=== PATIENT | male | born 1990 | race Caucasian/White ===

== ENCOUNTER 2021-11-16 18:30 | Emergency (ER) | payer SELFPAY ==
[~2021-11-16] VITALS: Ht 180.3 cm; Wt 77.1 kg
== END 2021-11-16 21:06 | disposition home or self-care (01) ==
LOC: ER 18:30
DX: S61.212A Laceration without foreign body of right middle finger without damage to nail, initial encounter (principal); W22.8XXA Striking against or struck by other objects, initial encounter
CPT/HCPCS: 73130; 90714

== ENCOUNTER 2023-04-18 01:55 | Emergency (ER) | payer OTHER ==
[~2023-04-18] VITALS: Ht 180.3 cm; Wt 78.5 kg
[~2023-04-18 01:55] MED LIST: Monodox100 MG PO
[2023-04-18 02:35] VITALS: BP 135/105
[2023-04-18 04:03] LABS: Source, Urine Clean Catch
[2023-04-18 04:11] LABS: Bilirubin, Urine Neg (Neg); Blood, Urine Neg (Neg); Glucose Qualitative, Urine Neg (Neg); Ketones, Urine Neg (Neg); Leukocyte Esterase, Urine 1+ (Neg); Nitrite, Urine Neg (Neg); Protein, Urine 1+ (Neg); Specific Gravity, Urine 1.025 (1.003-1.022); Urobilinogen, Urine 1+ (Normal)
[2023-04-18 04:14] LABS: Appearance, Urine Clear (Clear); Color, Urine Yellow (P-Yellow)
[2023-04-18 04:19] LABS: Bacteria Rare /hpf; Red Blood Cells, Urine Not Seen /hpf (0-2); Squamous Epithelial Cells Not Seen /hpf (Few)
[2023-04-18 04:27] LABS: Albumin, Blood 3.6 g/dL (3.4-5.0); Albumin/Globulin Ratio 0.7 (0.8-1.8); Bilirubin, Total 0.5 mg/dL (0.1-1.0); Bun/Creatinine Ratio 19.8 (12.0-20.0); C-REACTIVE PROTEIN, EXT RANGE 3.52 mg/dL (0.000-0.300); Calcium, Blood 9.2 mg/dL (8.5-10.1); Creatinine, Blood 0.91 mg/dL (0.60-1.20); Globulin, Blood 5.1 g/dL (2.2-4.0); Potassium, Blood 4.3 mmol/L (3.5-5.5); Total Protein, Blood 8.7 g/dL (6.4-8.2)
[2023-04-18] MEDS ORDERED: Keflex500 MG PO (04:46)
[2023-04-18] MEDS ORDERED: Vibramycin100 MG PO (04:46)
[2023-04-19 20:11] LABS: HIV AB/P24 AG SCREEN Non Reactive (Non Reactive)
== END 2023-04-18 05:10 | disposition left against medical advice (07) ==
LOC: ER 01:55
PROVIDERS: Emergency Medicine
DX: S61.542A Puncture wound with foreign body of left wrist, initial encounter (principal); W34.010A Accidental discharge of airgun, initial encounter; A54.9 Gonococcal infection, unspecified; L08.9 Local infection of the skin and subcutaneous tissue, unspecified; Z18.89 Other specified retained foreign body fragments
CPT/HCPCS: 73110; 73130; 80053; 81001; 83605; 86140; 86592; 87040; 87389; 96372; 99283-25; A9270; J0696

== ENCOUNTER 2023-05-05 17:31 | Emergency (ER) | payer OTHER ==
[~2023-05-05] VITALS: Ht 180.3 cm; Wt 78.5 kg
[~2023-05-05 17:31] MED LIST changes: +Keflex500 MG PO; +Vibramycin100 MG PO
[2023-05-05 17:42] VITALS: BP 151/76
[2023-05-05 18:08] LABS: BASOPHILS ABSOLUTE AUTO 0.04 K/mm3 (0.00-0.23); BASOPHILS PERCENT AUTO 1 % (0-2); EOSINOPHILS ABSOLUTE AUTO 0.15 K/mm3 (0.00-0.68); EOSINOPHILS PERCENT AUTO 2 % (0-6); Hemoglobin 13.8 g/dL (13.5-17.5); IMMATURE GRAN PERCENT AUTO 0 % (0-1); LYMPHOCYTES ABSOLUTE AUTO 2.76 K/mm3 (0.84-5.20); LYMPHOCYTES PERCENT AUTO 32 % (21-46); MONOCYTES ABSOLUTE AUTO 0.57 K/mm3 (0.16-1.47); MONOCYTES PERCENT AUTO 7 % (4-13); Mean Corpuscular HGB 32.4 pg (26.0-34.0); Mean Corpuscular HGB Conc 33.7 g/dL (31.5-36.5); Mean Corpuscular Volume 96 fL (80-100); Mean Platelet Volume 8.2 fL (9.1-12.4); NEUTROPHILS ABSOLUTE AUTO 5.14 K/mm3 (1.96-9.15); NEUTROPHILS PERCENT AUTO 59 % (41-73); Platelet Count 398 K/mm3 (150-400); RDW Coefficient Variation 11.3 % (11.7-14.2); RDW Standard Deviation 39.8 fL (35.1-46.3); Red Blood Cell Count 4.26 M/mm3 (4.30-5.90); White Blood Cell Count 8.66 K/mm3 (4.00-11.30)
[2023-05-05 18:28] LABS: C-REACTIVE PROTEIN, EXT RANGE 1.56 mg/dL (0.000-0.300)
[2023-05-05 18:30] LABS: Albumin, Blood 3.5 g/dL (3.4-5.0); Albumin/Globulin Ratio 0.7 (0.8-1.8); Bilirubin, Total 0.2 mg/dL (0.1-1.0); Bun/Creatinine Ratio 13.1 (12.0-20.0); Calcium, Blood 9.1 mg/dL (8.5-10.1); Creatinine, Blood 0.84 mg/dL (0.60-1.20); Globulin, Blood 4.8 g/dL (2.2-4.0); Potassium, Blood 4.3 mmol/L (3.5-5.5); Total Protein, Blood 8.3 g/dL (6.4-8.2)
== END 2023-05-05 20:30 | disposition left against medical advice (07) ==
LOC: ER 17:31
PROVIDERS: Student in an Organized Health Care Education/Training Program
DX: M25.532 Pain in left wrist (principal); R79.82 Elevated C-reactive protein (CRP); R70.0 Elevated erythrocyte sedimentation rate
CPT/HCPCS: 80053; 85025; 85651; 86140; 96374; 99283-25; A9270; J1885

== ENCOUNTER 2023-06-03 06:59 | Emergency (ER) | payer OTHER ==
[~2023-06-03] VITALS: Ht 180.3 cm; Wt 79.4 kg
[2023-06-03 07:35] LABS: BASOPHILS ABSOLUTE AUTO 0.04 K/mm3 (0.00-0.23); BASOPHILS PERCENT AUTO 1 % (0-2); EOSINOPHILS ABSOLUTE AUTO 0.19 K/mm3 (0.00-0.68); EOSINOPHILS PERCENT AUTO 3 % (0-6); Hematocrit 39.4 % (37.0-53.0); Hemoglobin 13.5 g/dL (13.5-17.5); IMMATURE GRAN ABSOLUTE AUTO 0.01 K/mm3 (0.00-0.10); IMMATURE GRAN PERCENT AUTO 0 % (0-1); LYMPHOCYTES ABSOLUTE AUTO 2.69 K/mm3 (0.84-5.20); LYMPHOCYTES PERCENT AUTO 41 % (21-46); MONOCYTES ABSOLUTE AUTO 0.58 K/mm3 (0.16-1.47); MONOCYTES PERCENT AUTO 9 % (4-13); Mean Corpuscular HGB 31.9 pg (26.0-34.0); Mean Corpuscular HGB Conc 34.3 g/dL (31.5-36.5); Mean Corpuscular Volume 93 fL (80-100); Mean Platelet Volume 8.5 fL (9.1-12.4); NEUTROPHILS ABSOLUTE AUTO 3.06 K/mm3 (1.96-9.15); NEUTROPHILS PERCENT AUTO 47 % (41-73); Platelet Count 291 K/mm3 (150-400); RDW Coefficient Variation 11.2 % (11.7-14.2); RDW Standard Deviation 37.9 fL (35.1-46.3); Red Blood Cell Count 4.23 M/mm3 (4.30-5.90); White Blood Cell Count 6.57 K/mm3 (4.00-11.30)
[2023-06-03 07:59] LABS: Albumin, Blood 3.1 g/dL (3.4-5.0); Albumin/Globulin Ratio 0.7 (0.8-1.8); Bilirubin, Total 0.2 mg/dL (0.1-1.0); Bun/Creatinine Ratio 17.2 (12.0-20.0); Calcium, Blood 8.8 mg/dL (8.5-10.1); Creatinine, Blood 0.76 mg/dL (0.60-1.20); Globulin, Blood 4.2 g/dL (2.2-4.0); Potassium, Blood 3.6 mmol/L (3.5-5.5); Total Protein, Blood 7.3 g/dL (6.4-8.2)
[2023-06-03] MEDS ORDERED: IBUP400 PO (09:33)
[2023-06-03] MEDS ORDERED: ONDA4ODT MM (09:33)
[2023-06-03] MEDS ORDERED: ACET500 PO (09:33)
[2023-06-03 09:34] VITALS: BP 120/76
== END 2023-06-03 09:53 | disposition home or self-care (01) ==
LOC: ER 06:59
PROVIDERS: Student in an Organized Health Care Education/Training Program
DX: R07.81 Pleurodynia (principal); R10.11 Right upper quadrant pain; R11.2 Nausea with vomiting, unspecified
CPT/HCPCS: 36415; 71046; 74177; 80053; 83690; 84484; 85025; 85651; 86140; 93005; 93010; 96361; 96374; 96375; 99285-25; J1885; J2405; J7030; Q9967

== ENCOUNTER → 2024-03-16 | Outpatient (CLI) | payer OTHER ==
[~2024-03-16] MED LIST changes: +ACET500 PO; +IBUP400 PO; +ONDA4ODT MM
[2024-03-16 18:16] LABS: BASOPHILS ABSOLUTE AUTO 0.04 K/mm3 (0.00-0.23); BASOPHILS PERCENT AUTO 1 % (0-2); EOSINOPHILS ABSOLUTE AUTO 0.09 K/mm3 (0.00-0.68); EOSINOPHILS PERCENT AUTO 2 % (0-6); Hematocrit 43.2 % (37.0-53.0); Hemoglobin 14.8 g/dL (13.5-17.5); IMMATURE GRAN PERCENT AUTO 0 % (0-1); LYMPHOCYTES ABSOLUTE AUTO 2.02 K/mm3 (0.84-5.20); LYMPHOCYTES PERCENT AUTO 42 % (21-46); MONOCYTES ABSOLUTE AUTO 0.67 K/mm3 (0.16-1.47); MONOCYTES PERCENT AUTO 14 % (4-13); Mean Corpuscular HGB 33.2 pg (26.0-34.0); Mean Corpuscular HGB Conc 34.3 g/dL (31.5-36.5); Mean Corpuscular Volume 97 fL (80-100); Mean Platelet Volume 9.2 fL (9.1-12.4); NEUTROPHILS ABSOLUTE AUTO 2.05 K/mm3 (1.96-9.15); NEUTROPHILS PERCENT AUTO 42 % (41-73); Platelet Count 229 K/mm3 (150-400); RDW Coefficient Variation 11.6 % (11.7-14.2); RDW Standard Deviation 41.2 fL (35.1-46.3); Red Blood Cell Count 4.46 M/mm3 (4.30-5.90); White Blood Cell Count 4.87 K/mm3 (4.00-11.30)
[2024-03-16 18:27] LABS: Albumin, Blood 3.7 g/dL (3.4-5.0); Albumin/Globulin Ratio 1.1 (0.8-1.8); Bilirubin, Total 0.4 mg/dL (0.1-1.0); Bun/Creatinine Ratio 14.7 (12.0-20.0); Calcium, Blood 8.9 mg/dL (8.5-10.1); Creatinine, Blood 1.02 mg/dL (0.60-1.20); Globulin, Blood 3.5 g/dL (2.2-4.0); Potassium, Blood 3.9 mmol/L (3.5-5.5); Total Protein, Blood 7.2 g/dL (6.4-8.2)
[2024-03-19 11:11] LABS: HIV 1,2 COMBO ANTIGEN/ANTIBODY Negative (Negative)
[2024-03-20 20:19] LABS: APTIMA MEDIA TYPE Urine; C. TRACHOMATIS BY TMA Negative (Negative); N. GONORRHOEAE BY TMA Negative (Negative); SPECIMEN SOURCE Urine
== END ==
LOC: LAB 18:12 → LAB SHORT 18:12
PROVIDERS: Physician Assistant
DX: R10.9 Unspecified abdominal pain (principal); Z20.9 Contact with and (suspected) exposure to unspecified communicable disease
CPT/HCPCS: 80053; 83690; 85025; 86592; 87389; 87491; 87591

== ENCOUNTER 2024-06-30 10:44 | Emergency (ER) | payer OTHER ==
[~2024-06-30] VITALS: Ht 180.3 cm; Wt 79.4 kg
[2024-06-30 11:13] VITALS: BP 140/76
[2024-06-30] MEDS ORDERED: Ketorolac Tromethamine 30mg Vial IM ONE (11:25)
[2024-06-30] MEDS ORDERED: Amoxicillin/Clavulanate K 875 MG Tab PO ONE (11:25)
[2024-06-30] MEDS ORDERED: AMOCLA875 PO (11:38)
== END 2024-06-30 12:04 | disposition home or self-care (01) ==
LOC: ER 10:44
DX: H65.91 Unspecified nonsuppurative otitis media, right ear (principal); H66.92 Otitis media, unspecified, left ear; K04.7 Periapical abscess without sinus; Z79.899 Other long term (current) drug therapy
CPT/HCPCS: 99282; A9270; J1885

== ENCOUNTER 2024-07-28 21:32 | Emergency (ER) | payer OTHER ==
[~2024-07-28] VITALS: Ht 180.3 cm; Wt 79.4 kg
[~2024-07-28 21:32] MED LIST changes: +AMOCLA875 PO
[2024-07-28 22:17] LABS: BASOPHILS ABSOLUTE AUTO 0.03 K/mm3 (0.00-0.23); BASOPHILS PERCENT AUTO 0 % (0-2); EOSINOPHILS ABSOLUTE AUTO 0.12 K/mm3 (0.00-0.68); EOSINOPHILS PERCENT AUTO 1 % (0-6); Hematocrit 36.6 % (37.0-53.0); Hemoglobin 13.3 g/dL (13.5-17.5); IMMATURE GRAN ABSOLUTE AUTO 0.02 K/mm3 (0.00-0.10); IMMATURE GRAN PERCENT AUTO 0 % (0-1); LYMPHOCYTES PERCENT AUTO 22 % (21-46); MONOCYTES ABSOLUTE AUTO 0.91 K/mm3 (0.16-1.47); MONOCYTES PERCENT AUTO 8 % (4-13); Mean Corpuscular HGB 32.7 pg (26.0-34.0); Mean Corpuscular HGB Conc 36.3 g/dL (31.5-36.5); Mean Corpuscular Volume 90 fL (80-100); Mean Platelet Volume 8.6 fL (9.1-12.4); NEUTROPHILS ABSOLUTE AUTO 8.36 K/mm3 (1.96-9.15); NEUTROPHILS PERCENT AUTO 69 % (41-73); Platelet Count 290 K/mm3 (150-400); RDW Coefficient Variation 11.5 % (11.7-14.2); RDW Standard Deviation 37.7 fL (35.1-46.3); Red Blood Cell Count 4.07 M/mm3 (4.30-5.90); White Blood Cell Count 12.14 K/mm3 (4.00-11.30)
[2024-07-28 22:38] LABS: Albumin, Blood 3.4 g/dL (3.4-5.0); Albumin/Globulin Ratio 0.8 (0.8-1.8); Bilirubin, Total 0.6 mg/dL (0.1-1.0); Bun/Creatinine Ratio 17.2 (12.0-20.0); Creatinine, Blood 0.87 mg/dL (0.60-1.20); Globulin, Blood 4.3 g/dL (2.2-4.0); Potassium, Blood 3.5 mmol/L (3.5-5.5); Total Protein, Blood 7.7 g/dL (6.4-8.2)
[2024-07-28 23:36] LABS: Source, Urine Voided
[2024-07-28 23:37] LABS: Blood, Urine Neg (Neg); Glucose Qualitative, Urine Neg (Neg); Ketones, Urine Neg (Neg); Leukocyte Esterase, Urine 1+ (Neg); Nitrite, Urine Neg (Neg); Protein, Urine 1+ (Neg); Specific Gravity, Urine 1.025 (1.003-1.022); Urobilinogen, Urine 3+ (Normal)
[2024-07-28 23:53] LABS: Appearance, Urine Clear (Clear); Bilirubin, Urine 1+ (Neg); Color, Urine Amber (P-Yellow)
[2024-07-28 23:54] LABS: Amorphous Light (0-Heavy); Bacteria Rare /hpf; Mucus Light (0-Heavy); Red Blood Cells, Urine Not Seen /hpf (0-2); Spermatozoa Few /hpf; Squamous Epithelial Cells Rare /hpf (Few); White Blood Cells, Urine 0-2 /hpf (0-5)
[2024-07-29] MEDS ORDERED: Ondansetron HCl 2 MG / ML 2ML Vial IV ONE (01:05)
[2024-07-29] MEDS ORDERED: Morphine Sulfate 4 MG/1 ML Injection IV ONE (01:05)
[2024-07-29] MEDS ORDERED: Clindamycin 600mg in D5W 50 ML IV ONE (01:45)
[2024-07-29] MEDS ORDERED: SULTRIDS PO (01:49)
[2024-07-29 02:00] VITALS: BP 134/76
[2024-07-29] MEDS ORDERED: RX Prepack 6 Tabs Oxycodone 5mg UD ONE (02:00)
== END 2024-07-29 02:27 | disposition home or self-care (01) ==
LOC: ER 21:32
PROVIDERS: Student in an Organized Health Care Education/Training Program
DX: L02.214 Cutaneous abscess of groin (principal); N50.82 Scrotal pain; Z79.1 Long term (current) use of non-steroidal anti-inflammatories (NSAID); Z79.2 Long term (current) use of antibiotics
CPT/HCPCS: 36415; 76870; 80053; 81001; 83605; 85025; 87040; 93005; 93010; 96365; 96375; 99284-25; A9270; J2270; J2405

== ENCOUNTER 2025-02-04 05:24 | Emergency (ER) | payer OTHER ==
[~2025-02-04] VITALS: Ht 180.3 cm; Wt 77.1 kg
[~2025-02-04 05:24] MED LIST changes: +CEPH500 PO; +SULTRIDS PO
[2025-02-04 05:31] VITALS: BP 142/86
[2025-02-04] MEDS ORDERED: Trimethoprim/Sulfamethoxazole DS Tab PO ONE (06:00)
[2025-02-04] MEDS ORDERED: SULTRIDS PO (06:04)
== END 2025-02-04 06:07 | disposition home or self-care (01) ==
LOC: ER 05:24
DX: L02.415 Cutaneous abscess of right lower limb (principal); Z79.899 Other long term (current) drug therapy
CPT/HCPCS: A9270